=== PATIENT | female | born 1950 | race Caucasian/White ===

== ENCOUNTER → 2016-09-22 | Outpatient (CLI) | payer BC | END | disposition home or self-care (01) | LOC: C.LABBFT 11:12 | PROVIDERS: ATTEND Internal Medicine | DX: Z11.59 Encounter for screening for other viral diseases (principal) ==

== ENCOUNTER → 2016-09-22 | Outpatient (CLI) | payer BC | END | disposition home or self-care (01) | LOC: C.PAPS 13:53 | PROVIDERS: ATTEND Obstetrics & Gynecology | DX: Z01.419 Encounter for gynecological examination (general) (routine) without abnormal findings (principal) ==

== ENCOUNTER → 2016-11-10 | Outpatient (CLI) | payer BC ==
[2016-11-10 17:35] LABS: MANUAL MICROSCOPIC REQUIRED? NO; REVIEW REQ? NO; URINE APPEARANCE CLEAR (CLEAR); URINE BILIRUBIN NEG (NEG); URINE COLOR YELLOW; URINE NITRITE NEG (NEG); URINE PH 8.5 (4.5-7.5); URINE SPECIFIC GRAVITY 1.018 (1.000-1.030); UROBILINOGEN NEG (NEG); ZZUR CULT IF INDIC CLEAN CATCH NO
[2016-11-10 17:41] LABS: BASO % 0.4 %; BASO ABS # 0.02 K/uL (0-0.2); COMPLETE YES; EOS % 1.7 %; HEMATOCRIT 42.7 % (37-47); LYMPH % 41.2 %; LYMPH ABS # 2.19 K/uL (1.2-3.4); MEAN CELL VOLUME 93.6 fL (80-100); MEAN CORPUSCULAR HEMOGLOBIN 31.8 pg (25-34); MEAN PLATELET VOLUME 11.8 fL (7.4-10.4); MONO % 5.3 %; NEUT % 51.4 %; PLATELET COUNT 261 K/uL (130-400); RED BLOOD COUNT 4.56 M/uL (4.2-5.4); WHITE BLOOD COUNT 5.31 K/uL (4.8-10.8)
[2016-11-10 17:57] LABS: ALB/GLOB RATIO 0.9 (0.9-2); ALKALINE PHOSPHATASE 70 U/L (45-117); ALT/SGPT 22 U/L (12-78); AST/SGOT 14 U/L (15-37); BLOOD UREA NITROGEN 12 mg/dl (7-18); BUN/CREATININE RATIO 16.3 (10-20); CALCIUM 9.4 mg/dl (8.5-10.1); CARBON DIOXIDE 25 mmol/L (21-32); CHLORIDE 109 mmol/L (98-107); CREATININE 0.75 mg/dl (0.60-1.20); GLUCOSE 83 mg/dl (70-99); HDL CHOLESTEROL 50 mg/dl; SODIUM 142 mmol/L (136-145)
[2016-11-10 18:08] LABS: CHOLESTEROL 212 mg/dl (0-200); CHOLESTEROL/HDL RATIO 4.2; LDL CHOLESTEROL CALCULATED 119 mg/dl; TRIGLYCERIDES 213 mg/dl (0-150); VERY LOW DENSITY LIPOPROT CALC 43 mg/dl
== END | disposition home or self-care (01) ==
LOC: C.LABBFT 11:21
PROVIDERS: ATTEND Internal Medicine
DX: I10 Essential (primary) hypertension (principal); E78.5 Hyperlipidemia, unspecified; E03.9 Hypothyroidism, unspecified; M85.80 Other specified disorders of bone density and structure, unspecified site

== ENCOUNTER → 2016-11-30 | Outpatient (CLI) | payer OTHER ==
[2016-11-30 18:24] LABS: URINE APPEARANCE CLEAR (CLEAR); URINE BILIRUBIN NEG (NEG); URINE COLOR YELLOW; URINE EPITHELIAL CELL AUTO 0-5 /lpf (0-5); URINE NITRITE NEG (NEG); URINE PH 7.5 (4.5-7.5); URINE SPECIFIC GRAVITY 1.006 (1.000-1.030); UROBILINOGEN NEG (NEG); ZZUR CULT IF INDIC CLEAN CATCH NO
[2016-11-30 18:25] LABS: MANUAL MICROSCOPIC REQUIRED? NO; REVIEW REQ? NO
== END | disposition home or self-care (01) ==
LOC: C.LABSPEC 17:29
PROVIDERS: ATTEND Physician Assistant Medical
DX: R31.29 Other microscopic hematuria (principal)

== ENCOUNTER → 2017-01-21 | Outpatient (CLI) | payer OTHER, MEDICARE ==
[2017-01-21 16:42] LABS: CHOLESTEROL/HDL RATIO 3.4
== END | disposition home or self-care (01) ==
LOC: C.LABBFT 10:59
PROVIDERS: ATTEND Physician Assistant Medical
DX: E55.9 Vitamin D deficiency, unspecified (principal)

== ENCOUNTER → 2017-01-26 | Outpatient (CLI) | payer OTHER, MEDICARE ==
--- NOTE | 2017-01-27 07:38 | MAMMOGRAPHY REPORT ---
BILATERAL DIGITAL SCREENING MAMMOGRAM TOMOSYNTHESIS WITH CAD: 01/26/2017 CLINICAL HISTORY: Routine screening. Patient has no complaints. TECHNIQUE: Breast tomosynthesis in addition to standard 2D mammography was performed. Current study was also evaluated with a Computer Aided Detection (CAD) system. COMPARISON: Comparison is made to exams dated: 01/23/2016 mammogram and 01/07/2015 mammogram - [facility]. BREAST COMPOSITION: There are scattered areas of fibroglandular density in both breasts. FINDINGS: No suspicious mass, architectural distortion or cluster of microcalcifications is seen. IMPRESSION: ACR BI-RADS CATEGORY 1: NEGATIVE There is no mammographic evidence of malignancy. A 1 year screening mammogram is recommended. The pa tient will receive written notification of the results. Approximately 10% of breast cancers are not detected with mammography. A negative mammographic report should not delay biopsy if a clinically suggestive mass is present. Yara flowers/minda:01/26/2017 16:48:24 Marine Chronometer Assembler: [place] PHIPPS(R)(M), [facility] letter sent: Normal 1/2 BI-RADS Code: ACR BI-RADS Category 1: Negative
== END ==
LOC: C.MAMM 09:30
PROVIDERS: ATTEND Obstetrics & Gynecology
DX: Z12.31 Encounter for screening mammogram for malignant neoplasm of breast (principal)

== ENCOUNTER → 2017-06-01 | Outpatient (CLI) | payer OTHER, MEDICARE | END | disposition home or self-care (01) | LOC: C.MAMM 09:13 | PROVIDERS: ATTEND Physician Assistant Medical | DX: M85.852 Other specified disorders of bone density and structure, left thigh (principal) ==

== ENCOUNTER → 2017-06-23 | Outpatient (CLI) | payer OTHER, MEDICARE ==
[2017-06-23 18:14] LABS: ALKALINE PHOSPHATASE 70 U/L (45-117); ALT/SGPT 25 U/L (12-78); AST/SGOT 18 U/L (15-37); BLOOD UREA NITROGEN 9 mg/dl (7-18); BUN/CREATININE RATIO 11.2 (10-20); CALCIUM 9.3 mg/dl (8.5-10.1); CARBON DIOXIDE 25 mmol/L (21-32); CHLORIDE 107 mmol/L (98-107); CREATININE 0.77 mg/dl (0.60-1.20); GLUCOSE 92 mg/dl (70-99); HDL CHOLESTEROL 53 mg/dl; POTASSIUM 3.6 mmol/L (3.5-5.1); SODIUM 138 mmol/L (136-145)
[2017-06-23 18:22] LABS: ALB/GLOB RATIO 0.9 (0.9-2); CHOLESTEROL 172 mg/dl (0-200); CHOLESTEROL/HDL RATIO 3.2; LDL CHOLESTEROL CALCULATED 92 mg/dl; TRIGLYCERIDES 136 mg/dl (0-150); VERY LOW DENSITY LIPOPROT CALC 27 mg/dl
== END | disposition home or self-care (01) ==
LOC: C.LABBFT 11:31
PROVIDERS: ATTEND Physician Assistant Medical
DX: E03.9 Hypothyroidism, unspecified (principal)

== ENCOUNTER → 2017-09-24 | Outpatient (CLI) | payer OTHER, MEDICARE | END | disposition home or self-care (01) | LOC: C.LABBFT 14:23 | PROVIDERS: ATTEND Physician Assistant Medical | DX: R39.9 Unspecified symptoms and signs involving the genitourinary system (principal) ==

== ENCOUNTER → 2018-02-02 | Outpatient (CLI) | payer OTHER, MEDICARE | END | disposition home or self-care (01) | LOC: C.PAPS 13:33 | PROVIDERS: ATTEND Obstetrics & Gynecology | DX: Z01.419 Encounter for gynecological examination (general) (routine) without abnormal findings (principal) ==

== ENCOUNTER → 2018-02-09 | Outpatient (CLI) | payer OTHER, MEDICARE ==
--- NOTE | 2018-02-14 09:58 | POLYSOMNOGRAPH REPORT ---
CLINICAL DATA: The patient is a 67-year-old female with a history of snoring, insomnia, and very restless sleep. She has an [place] sleepiness scale score of 7. Her BMI is 41.75. This was an in-lab overnight polysomnography. SLEEP ARCHITECTURE: Total sleep period was 392 minutes. The total sleep time was 317 minutes. The sleep efficiency was moderately reduced to 73%. The sleep latency was prolonged to 42 minutes. Wake after sleep onset was increased to 75 minutes. The REM latency was prolonged to 220 minutes. There were 3 REM periods during the night. Sleep consisted of stage N1 4%, stage N2 40%, stage N3 35%, stage REM 21%. AROUSAL DATA: The patient had a total of 51 arousals including 34 spontaneous, 12 respiratory, 2 PLM, and 3 snoring arousals. The arousal index was 10. PLM DATA: The patient had a total of 12 periodic limb movements of sleep for a PLM index of only 2.3. There were 2 arousals, associated with limb movements for a PLM arousal index of 0.4. EKG: The cardiac rates ranged from 48-84 beats per minute. The average heart rate was 62 beats per minute. RESPIRATORY DATA: The patient had a total of 37 respiratory events, all hypopneas. Hypopneas were scored according to the 4% desaturation rule. The mean duration of the hypopneas was 22.2 seconds. She also had 11 RERAs. The apnea hypopnea index was 7.0. This reflects mild sleep apnea. OXIMETRY DATA: The average saturation for the night was 92%. The minimum saturation was 84%. There was a total of 55.2 minutes with saturations less than 89%. CRIMINAL JUSTICE PROGRAM DIRECTOR COMMENTS: Ms. Olivo slept in the right, left, and supine positions. No cardiac arrhythmia noted. Leg movements noted. No bruxism noted. Snoring was noted and scored as a 2 on a scale of 1 through 5. She awakened to use the restroom one time during the night. She states that she slept as well as she does in her own bed. IMPRESSION: 1. Mild obstructive sleep apnea. 2. Chronic insomnia. COMMENTS: The patient has mild sleep apnea. She had difficulty initiating sleep and maintaining sleep. However, after about 1:15 a.m., her sleep was fairly well consolidated. She did develop sleep apnea with most of the events being later on during the night. There was a much greater frequency of events during REM sleep with the REM apnea hypopnea index of 20.8. There was also a greater frequency of events while she was supine with a supine apnea hypopnea index of 12. She does have a longstanding history of insomnia. I suspect sleep apnea may play some role in this, but there probably are other factors as well. RECOMMENDATIONS: 1. Consideration is given to a trial of nasal CPAP. This could be accomplished by a CPAP titration done in the sleep laboratory. Alternatively, she could be treated with auto CPAP. 2. The patient should be advised of the appropriate principles of sleep hygiene. This would include having a regular sleep-wake schedule and allowing sufficient sleep time of approximately 7.5 hours of sleep. 3. If possible, the patient should avoid sleeping in the supine position. 4. Weight loss is advised in light of the elevation of body mass index of 41.75.
== END | disposition home or self-care (01) ==
LOC: C.NEUR 21:00
PROVIDERS: ATTEND Internal Medicine Pulmonary Disease
DX: G47.33 Obstructive sleep apnea (adult) (pediatric) (principal)

== ENCOUNTER → 2018-02-14 | Outpatient (CLI) | payer OTHER, MEDICARE ==
--- NOTE | 2018-02-14 15:43 | MAMMOGRAPHY REPORT ---
UNILATERAL RIGHT DIGITAL DIAGNOSTIC MAMMOGRAM TOMOSYNTHESIS AND RIGHT ULTRASOUND: 02/14/2018 CLINICAL HISTORY: 67-year-old woman called back from screening mammography for a 7 mm nodular asymmet ry in the lateral right breast. TECHNIQUE: Spot compression right CC and MLO 2D and tomosynthesis images; full-field right CC and MLO tomosynthesis images were obtained after placement of a skin BB marker. COMPARISON: Comparison is made to exams dated: 01/27/2018 mammogram, 01/26/2017 mammogram, 01/23/2016 ma mmogram, and 01/07/2015 mammogram - [facility]. Ultrasound of the right breast was performed. BREAST COMPOSITION: There are scattered areas of fibroglandular density in right breast. FINDINGS: The spot compression views of the right breast demonstrate a persistent 6 mm nodular asymme try in the lateral, middle to posterior right breast in the CC projection (right CC tomosynthesis sli ce ). No associated microcalcification or architectural distortion. This nodular asymmetry is increasingly conspicuous comparing to prior mammograms and is indeterminate. Further evaluation with ultrasound was performed. Targeted ultrasound was performed in the lateral right breast upper outer and lower outer quadrants. In the 8:00 axis, 6 cm from the nipple, a lobulated hypoechoic to anechoic cystic-appearing mass was identified, without evidence of internal vascularity. This mass measured 3.3 x 4.1 x 6.3 mm and was thought to possibly correlate with the mammographic finding. Therefore a skin BB was placed overlyi ng this sonographic lesion and full-field right CC and MLO tomosynthesis images were performed. The BB marker does not definitively align with the nodular asymmetry and therefore definitive characteriz ation with stereotactic tomosynthesis guided biopsy is recommended. IMPRESSION: ACR BI-RADS CATEGORY 4: SUSPICIOUS, ULTRASOUND ACR BI-RADS CATEGORY 4: SUSPICIOUS 1. Right breast stereotactic tomosynthesis guided biopsy is recommended for a 6 mm nodular asymmetry in the lateral, middle to posterior right breast, without definitive sonographic correlate. 2. There was a cystic appearing mass in the 8:00 right breast, 6 cm from the nipple, identified on u ltrasound that does not definitively correlate with the mammographic asymmetry, and is probably benig n. Pending benign pathology results from right breast stereotactic biopsy, a short interval follow-u p targeted right breast ultrasound is also recommended to ensure stability in 6 months. These results and recommendations were discussed with the patient at the time of the exam. She tenta tively scheduled the right breast biopsy prior to leaving our department. Some breast cancers are not detected with mammography. A negative mammographic report should not duong y biopsy if a clinically suggestive mass is present. Yara Rust M.D. ay/:02/14/2018 12:16:09 Cemetery Workers Supervisor: RT Satish(R)(M), [facility]; Makenzie Johnson [facility] letter sent: Abnormal 4/5 OVERALL STUDY BIRADS: 4 Suspicious abnormality
== END | disposition home or self-care (01) ==
LOC: C.MAMM 11:01
PROVIDERS: ATTEND Obstetrics & Gynecology
DX: N64.89 Other specified disorders of breast (principal)

== ENCOUNTER → 2018-02-23 | Outpatient (CLI) | payer OTHER, MEDICARE ==
--- NOTE | 2018-02-23 10:41 | Discharge Instructions ---
Discharge Instructions Procedure Procedure Date: Feb 23, 2018. Reason for visit: Right Asymmetry Lateral Breast. Discharge Discharge Date: Feb 23, 2018. Discharge Diagnosis: post right breast stereotactic tomosynthesis guided biopsy Medications Restart Stopped Medication(s): May resume Aspirin tomorrow Instructions Activity Recommendations: Additional Limitations (see below) Return to School/Work: no limitations Recommended Home Diet: No Limitations Provider Instructions: ACTIVITY RECOMMENDATIONS: * No lifting, pushing, pulling or exercising the affected side for three days. RETURN TO SCHOOL/WORK: * You may return to work/school after the procedure, but do not perform any strenuous activities for 24 to 48 hours. MEDICATIONS: * Tylenol (two 325 mg) every four to six hours if needed for mild pain (if not allergic to Tylenol). DIET: * Resume previous diet. SPECIAL CARE INSTRUCTIONS: * Keep biopsy site dry for 24 hours. May shower after 24 hours, but do not soak (bathe) incision. May remove Tegaderm (plastic patch) 24 hours after procedure * Leave the steri-strips on for one week. Allow the steri-strips to fall off by themselves. If not off after one week, you may remove them. You may place a Bandaid crosswise over the strips, if desired. * Apply ice 10 minutes on and 10 minutes off as needed. * Wear a bra at bedtime to sleep more comfortably for 2-3 days. * Your referring physician should have the results after approximately 5 to 7 business days. * Call for unusual bleeding, fever, drainage, etc or if you have any questions call [phone] during normal business hours or after hours call Dr Rust, . FOLLOW UP VISIT: Follow-up with Referring Physician as scheduled. Sebastian Waterman Recommendations: Call your doctor if: * Temperature above 101 degrees * Pain not relieved by pain medicine ordered * There is increased drainage or redness from any incision * You have any unanswered questions or concerns. Your Doctors Instructions noted above were prepared by provider Yara Rust. Patient Signature Section: Patient Instructions Signature Page Bri Olivo Patient (or Guardian) Signature/Date: I have read and understand the instructions given to me by my caregivers. Caregiver/RN/Doctor Signature/Date: The above-named patient and/or guardian has received patient instructions on this date. + Original Patient Signature Page (only) stays with chart. Please make copy for patient.
--- NOTE | 2018-02-23 13:38 | MAMMOGRAPHY REPORT ---
STEREOTACTIC GUIDED BIOPSY RIGHT BREAST: 02/23/2018 CLINICAL HISTORY: 67-year-old woman presents for stereotactic tomosynthesis guided biopsy of a 6 mm i rregular focal asymmetry in the lateral posterior right breast, without sonographic correlate identif ied. COMPARISON: Comparison is made to exams dated: 02/14/2018 ultrasound, 02/14/2018 mammogram, 01/27/2018 mammogram, 01/26/2017 mammogram, 01/23/2016 mammogram, and 01/07/2015 mammogram - [facility]. PATIENT CONSENT: After explaining the risks, benefits and alternatives of the procedure to the patien t, informed consent was obtained both verbally and in writing. Specific risks include: Bleeding, inf ection, puncture of adjacent structure, pain, nontarget biopsy, sampling error, metal allergy and med ication reaction. PROCEDURE DESCRIPTION: A time-out was performed and the right breast was confirmed as the site of bio psy. The patient was placed prone on the stereotactic biopsy table and the breast was placed in CC fr om below compression. A tomosynthesis driving instructor view was obtained which demonstrates the 6 mm asymmetry w ithin the targeting window and therefore this lesion was targeted utilizing the coordinates obtained by the computer. The skin was prepped with Betadine. 1% Lidocaine with and without epinipherine was administered as local anesthesia. A small skin incision was made. Through the incision, the needle w as inserted to the depth determined by the computer. 9 samples were obtained using a [employer] 9-ga uge vacuum-assisted biopsy device. After the biopsy, a titanium marker was placed at the biopsy site . There was no immediate complication. Hemostasis was achieved after several minutes of manual compre ssion. The samples were sent to pathology in an appropriately labeled container. Postprocedure CC and ML tomosynthesis views of the right breast were obtained. There is a new dumbb ell-shaped biopsy marker clip, small air pocket denoting the biopsy cavity and no significant hematom a in the upper outer posterior right breast, at the site of the biopsied 6 mm mammographic asymmetry. The lesion is no longer seen on the post procedure CC view, suggesting adequate tissue sampling. P ending benign pathology results, a six-month follow-up right diagnostic tomosynthesis mammogram is re commended to ensure stability and adequate sampling. IMPRESSION: STEREOTACTIC GUIDED BIOPSY Status post right breast stereotactic tomosynthesis guided biopsy of a 6 mm asymmetry in the upper ou ter posterior right breast, with biopsy marker clip placed at the site. Pending benign pathology results, six-month follow-up right diagnostic tomosynthesis mammograms are r ecommended to ensure stability and adequate sampling given the lesion was an asymmetry (08/2018). The patient will receive notification of the biopsy results from her referring physician. Yara Rust M.D. ay/:02/23/2018 11:04:59 Java Spring Developer: RT Mirtha(R)(M), [facility]
--- NOTE | 2018-02-23 13:38 | MAMMOGRAPHY REPORT ---
UNILATERAL RIGHT DIGITAL DIAGNOSTIC MAMMOGRAM TOMOSYNTHESIS WITH CAD: 02/23/2018 CLINICAL HISTORY: Status post stereotactic tomosynthesis guided biopsy of a smallIrregular nodular 6 mm asymmetry in the lateral posterior right breast without sonographic correlate. Please refer to the report from right breast stereotactic tomosynthesis guided biopsy performed at e same time for full detail. IMPRESSION: POST PROCEDURE IMAGING FOR MARKER PLACEMENT Please refer to the report from right breast stereotactic tomosynthesis guided biopsy performed at e same time for full detail. Some breast cancers are not detected with mammography. A negative mammographic report should not duong y biopsy if a clinically suggestive mass is present. Yara Rust M.D. ay/:02/23/2018 10:42:06 Police Chief: RT Mirtha(Kandi)(M), [facility] BI-RADS Code: Post Procedure Imaging For Marker Placement
== END | disposition home or self-care (01) ==
LOC: C.MAMM 09:52
PROVIDERS: ATTEND Obstetrics & Gynecology
DX: R92.8 Other abnormal and inconclusive findings on diagnostic imaging of breast (principal)